=== PATIENT | female | born 1960 | race African-American/Black ===

== ENCOUNTER → 2017-12-30 | Outpatient (CLI) | payer OTHER ==
[~2017-12-30] MED LIST: ATOV1TAB17 PO; BUPR300T56 PO; CHOL200021 PO; CHOL200085 PO; CYAN500T54 PO; DEXL60CA6 PO; FERR325T24 PO; FLU60VIA41 IM; GABA-547 PO; GOLYTE PO; HYDR26CR2 TP; HYDR28.33 EXT; LORC20TA PO; NAPR500T31 PO; OMEG100032 PO; OMEG500C7 PO; RANI-366 PO; TIZA2CAP3 PO; TRAM-420 PO
[2017-12-30 10:55] LABS: PLATELET COUNT, AUTOMATED 154 K/uL (150-450)
[2017-12-30 11:11] LABS: LDL CHOLESTEROL 119 mg/dl
== END ==
LOC: LAB 10:32
PROVIDERS: ATTEND Emergency Medicine
DX: Z00.00 Encounter for general adult medical examination without abnormal findings (principal); M54.9 Dorsalgia, unspecified; R20.8 Other disturbances of skin sensation
CPT/HCPCS: 36415; 82040; 82247; 82306; 82310; 82374; 82435; 82465; 82565; 82607; 82947; 83718; 84075; 84132; 84155; 84295; 84443; 84450; 84460; 84478; 84520; 85025